=== PATIENT | male | born 1940 | race Caucasian/White ===

== ENCOUNTER 2018-11-06 10:03 | Inpatient (IN) | payer MEDICARE, OTHER ==
[~2018-11-06] VITALS: Ht 177.8 cm; Wt 80.0 kg
[~2018-11-06 10:03] MED LIST: OMEP20CA11 PO
[2018-11-06 11:07] LABS: BASOPHILS # (AUTO) 0.1 X10'3 (0-0.2); BASOPHILS % (AUTO) 0.9 % (0-1); EOSINOPHILS % (AUTO) 0.3 % (0-6); HEMATOCRIT 46.7 % (42.0-52.0); HEMOGLOBIN 15.3 g/dl (14.0-17.9); LYMPHOCYTES # (AUTO) 4.4 X10'3 (1.1-4.8); LYMPHOCYTES % (AUTO) 47.7 % (21-51); MEAN CORPUSCULAR HGB CONC 32.7 g/dL (33.0-36.5); MEAN CORPUSCULAR VOLUME 85.5 FL (78-98); MEAN PLATELET VOLUME 10.3 FL (7.4-10.4); MONOCYTES # (AUTO) 0.3 X10'3 (0-0.9); MONOCYTES % (AUTO) 3.8 % (2-12); NEUTROPHILS # (AUTO) 4.4 X10'3 (1.8-7.7); NEUTROPHILS % (AUTO) 47.3 % (42-75); PLATELET COUNT 119 X10'3 (140-440); RED BLOOD COUNT 5.46 X10'6 (4.70-6.10); RED CELL DISTRIBUTION WIDTH 14.8 % (11.5-14.5); WHITE BLOOD COUNT 9.3 X10'3 (4.5-11.0)
[2018-11-06 11:19] LABS: ALANINE AMINOTRANSFERASE 25 U/L (12-78); ALBUMIN 4.3 G/DL (3.4-5.0); ALBUMIN/GLOBULIN RATIO 1.4 (1.1-1.5); ALKALINE PHOSPHATASE 64 IU/L (46-116); ANION GAP 8 (8-16); ASPARTATE AMINO TRANSFERASE 17 U/L (10-37); BILIRUBIN,TOTAL 0.5 MG/DL (0.1-1.0); BLOOD UREA NITROGEN 23 MG/DL (7-18); CALCIUM 9.4 MG/DL (8.5-10.1); CHLORIDE 106 MMOL/L (99-107); CREATININE 0.96 MG/DL (0.60-1.10); GLUCOSE 110 MG/DL (70-104); POTASSIUM 5.2 MMOL/L (3.5-5.1); SODIUM 141 MMOL/L (135-145); TOTAL CARBON DIOXIDE 27.3 MMOL/L (24-32); TOTAL PROTEIN 7.3 G/DL (6.4-8.2); eGFR 75 ML/MIN
[2018-11-06] MEDS ORDERED: NO HOME MEDS (11:26)
[2018-11-06] MEDS ORDERED: insulin regular, human 10 units/0.1 ml syringe IV ONE (11:35)
[2018-11-06] MEDS ORDERED: dextrose 50%-water 50ml dispensing syringe IV ONE (11:35)
[2018-11-06 11:41] LABS: PLATELET ESTIMATE DECREASED; TOTAL CELLS COUNTED 100
[2018-11-06] MEDS ORDERED: enoxaparin 100mg/ml syringe SUBCUT ONE (11:50)
[2018-11-06] MEDS ORDERED: mag hydrox/Alum hydrox/simeth 30ml oral suspension PO PRN (13:35)
[2018-11-06] MEDS ORDERED: magnesium hydroxide 30ml (MOM) UD suspension PO PRN (13:35)
[2018-11-06] MEDS ORDERED: ondansetron/PF 4mg/2ml inj IV PRN (13:35)
[2018-11-06] MEDS ORDERED: acetaminophen 325mg tablet PO PRN (13:35)
[2018-11-06] MEDS ORDERED: morphine 2 MG/ML inj. syringe IV PRN ×2 (13:35)
[2018-11-06] MEDS ORDERED: sodium polystyrene sulfonate 15gm/60ml oral suspension PO ONE (14:05)
--- NOTE | 2018-11-06 14:50 | NUR ---
Received report from Hien PEREZ RN.
[2018-11-06 15:20] VITALS: BP 139/81
--- NOTE | 2018-11-06 15:37 | NUR ---
Paged hospitalist, "Ambreen [phone]- new admit Rm 311 Hood Price Do you want ETOH protocol or beer ordered by chance?"
[2018-11-06] MEDS: normal saline 1000ml 1,000 ML IV SCH (16:37)
[2018-11-06] MEDS ORDERED: nitroGLYCERIN 0.4mg SUBLingual tab SL PRN (17:40)
[2018-11-06] MEDS ORDERED: regadenoson 0.4mg/5ml syringe IV PRN (17:40)
[2018-11-06] MEDS ORDERED: folic acid 1mg tablet PO ONE (17:40)
[2018-11-06] MEDS ORDERED: metoprolol tartrate 1mg/ml inj IV PRN (17:40)
[2018-11-06] MEDS ORDERED: aminophylline 250mg/10ml inj. IV PRN (17:40)
[2018-11-06] MEDS ORDERED: LORazepam 2 mg/ml vial IV PRN (17:40)
--- NOTE | 2018-11-06 18:13 | NUR ---
Problems reprioritized. Patient report given, questions answered & plan of care reviewed with Dahiana MONTERO.
--- NOTE | 2018-11-06 18:28 | NUR ---
Patient in room MED 311. I have received report from Ambreen MONTERO and had the opportunity to ask questions and assume patient care.
[2018-11-06 19:00] VITALS: BP 139/82
[2018-11-06] MEDS: carVEDilol 3.125mg tablet PO SCH (19:17)
[2018-11-06] MEDS: thiamine 100mg tablet PO SCH (19:18)
[2018-11-06] MEDS: enoxaparin 80mg/0.8ml syringe SUBCUT SCH (19:18)
[2018-11-06 23:00] VITALS: BP 123/78
[2018-11-07] VITALS (14 sets, daily range): BP systolic 118–167; BP diastolic 60–95
[2018-11-07] MEDS: normal saline 1000ml 1,000 ML IV SCH ×2 (03:30→09:31)
[2018-11-07 06:04] LABS: EOSINOPHILS # (AUTO) 0.1 X10'3 (0-0.9); WHITE BLOOD COUNT 7.6 X10'3 (4.5-11.0)
[2018-11-07 06:06] LABS: BASOPHILS # (AUTO) 0.1 X10'3 (0-0.2); BASOPHILS % (AUTO) 0.7 % (0-1); EOSINOPHILS % (AUTO) 0.9 % (0-6); HEMATOCRIT 40.7 % (42.0-52.0); HEMOGLOBIN 13.3 g/dl (14.0-17.9); LYMPHOCYTES # (AUTO) 3.4 X10'3 (1.1-4.8); LYMPHOCYTES % (AUTO) 44.1 % (21-51); MEAN CORPUSCULAR HEMOGLOBIN 27.8 PG (27.0-31.0); MEAN CORPUSCULAR HGB CONC 32.7 g/dL (33.0-36.5); MEAN CORPUSCULAR VOLUME 84.9 FL (78-98); MEAN PLATELET VOLUME 10.2 FL (7.4-10.4); MONOCYTES # (AUTO) 0.3 X10'3 (0-0.9); MONOCYTES % (AUTO) 4.5 % (2-12); NEUTROPHILS # (AUTO) 3.8 X10'3 (1.8-7.7); NEUTROPHILS % (AUTO) 49.8 % (42-75); PLATELET COUNT 98 X10'3 (140-440); RED BLOOD COUNT 4.79 X10'6 (4.70-6.10)
--- NOTE | 2018-11-07 06:08 | NUR ---
Problems reprioritized. Patient report given, questions answered & plan of care reviewed with Art RN.
[2018-11-07 06:26] LABS: ANION GAP 7 (8-16); BLOOD UREA NITROGEN 22 MG/DL (7-18); BUN/CREATININE RATIO 23.2 (5.4-32.0); CHLORIDE 110 MMOL/L (99-107); CREATININE 0.95 MG/DL (0.60-1.10); GLUCOSE 93 MG/DL (70-104); POTASSIUM 4.2 MMOL/L (3.5-5.1); SODIUM 144 MMOL/L (135-145); TOTAL CARBON DIOXIDE 27.1 MMOL/L (24-32)
[2018-11-07 06:27] LABS: ALBUMIN 3.5 G/DL (3.4-5.0); eGFR 76 ML/MIN
[2018-11-07] MEDS: thiamine 100mg tablet PO SCH ×2 (07:41→21:19)
[2018-11-07] MEDS: folic acid 1mg tablet PO SCH (07:41)
[2018-11-07] MEDS: aspirin 81mg tablet.DR PO SCH (07:41)
[2018-11-07] MEDS: atorvastatin 20mg tablet PO SCH (07:41)
[2018-11-07] MEDS: enoxaparin 80mg/0.8ml syringe SUBCUT SCH ×2 (08:00→20:00)
[2018-11-07] MEDS: carVEDilol 3.125mg tablet PO SCH ×2 (08:00→21:19)
[2018-11-07 08:06] LABS: TOTAL CELLS COUNTED 100
[2018-11-07 08:07] LABS: PLATELET ESTIMATE DECREASED
--- NOTE | 2018-11-07 09:17 | NUR ---
Pt to stress test
--- NOTE | 2018-11-07 13:56 | NUR ---
Pt was to have a cath tomorrow. [facility] and cannot have a cath without prior approval from the [facility].
--- NOTE | 2018-11-07 18:00 | NUR ---
Patient in room MED 311. I have received report from Art, RN and had the opportunity to ask questions and assume patient care.
[2018-11-08] VITALS (12 sets, daily range): BP systolic 118–146; BP diastolic 48–84
[2018-11-08] MEDS: normal saline 1000ml 1,000 ML IV SCH ×3 (01:02→15:55)
[2018-11-08 04:59] LABS: BASOPHILS % (AUTO) 0.7 % (0-1); EOSINOPHILS # (AUTO) 0.1 X10'3 (0-0.9); EOSINOPHILS % (AUTO) 1.5 % (0-6); HEMOGLOBIN 12.7 g/dl (14.0-17.9); LYMPHOCYTES # (AUTO) 3.1 X10'3 (1.1-4.8); MEAN CORPUSCULAR VOLUME 85.6 FL (78-98)
[2018-11-08 05:02] LABS: HEMATOCRIT 37.7 % (42.0-52.0); LYMPHOCYTES % (AUTO) 48.2 % (21-51); MEAN CORPUSCULAR HEMOGLOBIN 28.7 PG (27.0-31.0); MEAN CORPUSCULAR HGB CONC 33.6 g/dL (33.0-36.5); MEAN PLATELET VOLUME 10.4 FL (7.4-10.4); MONOCYTES # (AUTO) 0.5 X10'3 (0-0.9); MONOCYTES % (AUTO) 7.5 % (2-12); NEUTROPHILS # (AUTO) 2.7 X10'3 (1.8-7.7); NEUTROPHILS % (AUTO) 42.1 % (42-75); PLATELET COUNT 94 X10'3 (140-440); RED BLOOD COUNT 4.41 X10'6 (4.70-6.10); RED CELL DISTRIBUTION WIDTH 14.5 % (11.5-14.5); WHITE BLOOD COUNT 6.4 X10'3 (4.5-11.0)
[2018-11-08 05:10] LABS: CHLORIDE 111 MMOL/L (99-107); GLUCOSE 94 MG/DL (70-104); POTASSIUM 4.1 MMOL/L (3.5-5.1); SODIUM 142 MMOL/L (135-145)
[2018-11-08 05:11] LABS: ALBUMIN 3.2 G/DL (3.4-5.0); ANION GAP 5 (8-16); BLOOD UREA NITROGEN 18 MG/DL (7-18); BUN/CREATININE RATIO 17.6 (5.4-32.0); CALCIUM 7.5 MG/DL (8.5-10.1); CREATININE 1.02 MG/DL (0.60-1.10); eGFR 70 ML/MIN
[2018-11-08 07:21] LABS: TOTAL CELLS COUNTED 100
[2018-11-08 07:23] LABS: ANISOCYTOSIS 1+; PLATELET ESTIMATE DECREASED
[2018-11-08 07:27] LABS: SMUDGE CELLS 2+
[2018-11-08] MEDS: folic acid 1mg tablet PO SCH (07:51)
[2018-11-08] MEDS: aspirin 81mg tablet.DR PO SCH (07:51)
[2018-11-08] MEDS: thiamine 100mg tablet PO SCH ×2 (07:51→20:37)
[2018-11-08] MEDS: atorvastatin 20mg tablet PO SCH (07:51)
[2018-11-08] MEDS: carVEDilol 3.125mg tablet PO SCH ×2 (07:51→20:37)
[2018-11-08] MEDS: enoxaparin 80mg/0.8ml syringe SUBCUT SCH ×2 (08:00→20:00)
--- NOTE | 2018-11-08 08:50 | NUR ---
Rolanda, telephonic case manager, called. informed that she received confirmation from [facility] liason that patient does not need pre-authorization for inpatient heart cath.
--- NOTE | 2018-11-08 09:00 | NUR ---
informed Dr. Mello about conversation with [employer], Rolanda. Informed Dr. Mello that I will call Dr. Llamas.
--- NOTE | 2018-11-08 09:05 | NUR ---
I called Dr. Llamas Office - informed entry level receptionist that [facility] only applies to outpatient heart catheterization. Sample Sewer informed that she would give the message to Dr. Llamas
--- NOTE | 2018-11-08 09:15 | NUR ---
Dr. Llamas called: New orders received - prep patient for heart catheterization this afternoon. Dr. Llamas said patient would be done after his other 2 cases. NS@100, NPO now except for meds. Dr. Llamas will call the lab intern. I called dyehouse worker. Informed her that patient we be taken to lab intern post Dr. Llamas's other 2 cases.
--- NOTE | 2018-11-08 10:01 | NUR ---
PAGER ID: [phone] MESSAGE: [phone]: MORALES darling pt to heart cath this afternoon, around 1630ish. nurse art [phone]
[2018-11-08] MEDS ORDERED: fentaNYL/PF 50MCG/1 ML 2ML syringe ONE (12:37)
[2018-11-08] MEDS ORDERED: iohexol 350MG/ML 100ml bottle IV ONE (12:37)
[2018-11-08] MEDS ORDERED: LIDOcaine 1% (10mg/ml)w/preservative injection 20ml MDV ONE (12:37)
[2018-11-08] MEDS ORDERED: iohexol 350 MG/ML 50ML vial IV ONE (12:37)
[2018-11-08] MEDS ORDERED: midazolam 2 mg/2 ml injection ONE (12:37)
--- NOTE | 2018-11-08 12:52 | NUR ---
patient off to labor delivery rn
[2018-11-08] MEDS ORDERED: heparin 1,000unit/ml 10ml vial 10 ML ONE (13:11)
[2018-11-08] MEDS ORDERED: tirofiban 5mg in NS 100mL 100 ML IV ONE (13:13)
[2018-11-08] MEDS ORDERED: iohexol 350 MG/1 ML 200ml bottle ONE (13:13)
[2018-11-08] MEDS ORDERED: heparin 25,000 UNIT/250ml bag 250 ML IV ONE (13:13)
--- NOTE | 2018-11-08 13:26 | NUR ---
PAGER ID: [phone] MESSAGE: Dr. Mello, can you call Dr. Llamas in the molder labels at [phone] regarding pt Price? Thanks. Art
[2018-11-08] MEDS ORDERED: HYDROcodone/acetaminophen 5mg/325mg tablet PO PRN (14:05)
[2018-11-08] MEDS ORDERED: normal saline 1000ml 1,000 ML IV SCH (14:05)
[2018-11-08] MEDS ORDERED: HYDROcodone/acetaminophen 10/325mg tab PO PRN (14:05)
[2018-11-08] MEDS ORDERED: OXAZEpam 15mg capsule PO PRN (14:05)
[2018-11-08] MEDS ORDERED: proCHLORperazine 10 MG/2 ml inj IV PRN (14:05)
--- NOTE | 2018-11-08 14:16 | NUR ---
pt resting in his room post cath. He is supine in the bed with q15 minute VS.
--- NOTE | 2018-11-08 21:35 | NUR ---
Patient in room MED 311. I have received report from Art RN and had the opportunity to ask questions and assume patient care.
[2018-11-09 02:00] VITALS: BP 104/58
[2018-11-09] MEDS: normal saline 1000ml 1,000 ML IV SCH (05:09)
[2018-11-09 06:00] VITALS: BP 126/60
[2018-11-09 06:19] LABS: BASOPHILS % (AUTO) 0.6 % (0-1); EOSINOPHILS # (AUTO) 0.1 X10'3 (0-0.9); EOSINOPHILS % (AUTO) 1.4 % (0-6); HEMOGLOBIN 12.7 g/dl (14.0-17.9); LYMPHOCYTES # (AUTO) 2.9 X10'3 (1.1-4.8); MEAN CORPUSCULAR HEMOGLOBIN 28.2 PG (27.0-31.0); MEAN CORPUSCULAR HGB CONC 33.3 g/dL (33.0-36.5); MEAN CORPUSCULAR VOLUME 84.6 FL (78-98); MEAN PLATELET VOLUME 10.4 FL (7.4-10.4); MONOCYTES # (AUTO) 0.4 X10'3 (0-0.9); MONOCYTES % (AUTO) 5.8 % (2-12); NEUTROPHILS # (AUTO) 3.6 X10'3 (1.8-7.7); NEUTROPHILS % (AUTO) 51.2 % (42-75); PLATELET COUNT 99 X10'3 (140-440); RED BLOOD COUNT 4.49 X10'6 (4.70-6.10); RED CELL DISTRIBUTION WIDTH 14.5 % (11.5-14.5)
[2018-11-09 06:28] LABS: ALBUMIN 3.2 G/DL (3.4-5.0); ANION GAP 7 (8-16); BLOOD UREA NITROGEN 14 MG/DL (7-18); BUN/CREATININE RATIO 16.5 (5.4-32.0); CALCIUM 7.7 MG/DL (8.5-10.1); CHLORIDE 110 MMOL/L (99-107); CREATININE 0.85 MG/DL (0.60-1.10); GLUCOSE 94 MG/DL (70-104); SODIUM 142 MMOL/L (135-145); TOTAL CARBON DIOXIDE 25.2 MMOL/L (24-32); eGFR 87 ML/MIN
--- NOTE | 2018-11-09 06:45 | NUR ---
Reviewed and agreed with Jacquie Leblanc RN's charting.
--- NOTE | 2018-11-09 06:49 | NUR ---
Problems reprioritized. Patient report given, questions answered & plan of care reviewed with Pat RN.
--- NOTE | 2018-11-09 06:50 | NUR ---
Problems reprioritized. Patient report given, questions answered & plan of care reviewed with Pat RN.
[2018-11-09] MEDS: enoxaparin 80mg/0.8ml syringe SUBCUT SCH (08:00)
[2018-11-09] MEDS: aspirin 81mg tablet.DR PO SCH ×2 (08:00→09:52)
[2018-11-09] MEDS: atorvastatin 20mg tablet PO SCH (08:00)
[2018-11-09] MEDS: folic acid 1mg tablet PO SCH (08:00)
[2018-11-09] MEDS: thiamine 100mg tablet PO SCH (08:00)
[2018-11-09] MEDS: carVEDilol 3.125mg tablet PO SCH (08:33)
[2018-11-09] MEDS ORDERED: COR3.125T PO (08:59)
[2018-11-09] MEDS ORDERED: ATOR20TA66 PO (08:59)
[2018-11-09] MEDS ORDERED: ASPI-1071 PO (08:59)
--- NOTE | 2018-11-09 09:21 | NUR ---
PATIENT IS ESTABLISHED WITH [facility]. PATIENT WILL FOLLOW UP WITH THE [facility] AND MAKE APPOINTMENTS NECESSARY. Addendum: 11/09/18 at 0922 by Amanda Bone RN Amended: Links added.
--- NOTE | 2018-11-09 10:51 | NUR ---
DISCHARGE INSTRUCTIONS GIVEN TO PATIENT AND HIS DAUGHTER; PATIENT STATES AND SIGNS " UNDERSTANDING OF INSTRUCTIONS." SL DC'D WITH CATH INTACT 2X2 PRESSURE DRESSING APPLIED. RT. GROIN SITE CLEAR, NO HEMATOMA VISUAL AND PER PALPATION. DISCHARGED HOME WITH ALL BELONGINGS , INSTRUCTIONS , AND PRESCRIPTIONS. PATIENT'S DAUGHT IS AT HIS SIDE. Addendum: 11/09/18 at 1055 by Jerica Mcgraw RN Amended: Links added.
== END 2018-11-09 10:45 | disposition home or self-care (01) | DRG 282 ==
LOC: ER 10:04 → MED 3N 15:05 → CMPBEDREQ 19:27
PROVIDERS: ADMIT Family Medicine; ATTEND Internal Medicine
PROC: 4A02XM4 Measurement of Cardiac Total Activity, External Approach (ICD-10-PCS; principal; 2018-11-07)
PROC: 3E033HZ Introduction of Radioactive Substance into Peripheral Vein, Percutaneous Approach (ICD-10-PCS; 2018-11-07)
PROC: 4A023N7 Measurement of Cardiac Sampling and Pressure, Left Heart, Percutaneous Approach (ICD-10-PCS; 2018-11-08)
PROC: B2111ZZ Fluoroscopy of Multiple Coronary Arteries using Low Osmolar Contrast (ICD-10-PCS; 2018-11-08)
PROC: B2151ZZ Fluoroscopy of Left Heart using Low Osmolar Contrast (ICD-10-PCS; 2018-11-08)
PROC: B3101ZZ Fluoroscopy of Thoracic Aorta using Low Osmolar Contrast (ICD-10-PCS; 2018-11-08)
PROC: B3121ZZ Fluoroscopy of Left Subclavian Artery using Low Osmolar Contrast (ICD-10-PCS; 2018-11-08)
DX: I21.4 Non-ST elevation (NSTEMI) myocardial infarction (principal); E87.5 Hyperkalemia; D69.6 Thrombocytopenia, unspecified; E78.00 Pure hypercholesterolemia, unspecified; K57.90 Diverticulosis of intestine, part unspecified, without perforation or abscess without bleeding; M19.90 Unspecified osteoarthritis, unspecified site; I10 Essential (primary) hypertension; I25.110 Atherosclerotic heart disease of native coronary artery with unstable angina pectoris; Z79.82 Long term (current) use of aspirin; Z79.899 Other long term (current) drug therapy; Z87.01 Personal history of pneumonia (recurrent); Z88.8 Allergy status to other drugs, medicaments and biological substances
CPT/HCPCS: 36415; 71045; 78452; 80048; 80053; 83735; 83880; 84484; 85025; 86022; 87081; 93005; 93017; 93458; 96372; 96374; 96375; 99152; 99153; 99285; A4620; A6258; A9500; C1760; C1769; G0378; J1644; J1650; J1815; J2001; J2250; J2785; J3010; J3246; J7030; Q9967

== ENCOUNTER 2018-11-13 21:57 | Emergency (ER) | payer OTHER ==
[~2018-11-13] VITALS: Ht 182.9 cm; Wt 82.7 kg
[~2018-11-13 21:57] MED LIST changes: +ASPI-1071 PO; +ATOR20TA66 PO; +COR3.125T PO; -OMEP20CA11 PO
[2018-11-13 22:31] LABS: BASOPHILS # (AUTO) 0.1 X10'3 (0-0.2); BASOPHILS % (AUTO) 1.1 % (0-1); EOSINOPHILS # (AUTO) 0.1 X10'3 (0-0.9); EOSINOPHILS % (AUTO) 1.1 % (0-6); HEMATOCRIT 43.5 % (42.0-52.0); HEMOGLOBIN 14.3 g/dl (14.0-17.9); LYMPHOCYTES # (AUTO) 4.2 X10'3 (1.1-4.8); LYMPHOCYTES % (AUTO) 44.2 % (21-51); MEAN CORPUSCULAR HGB CONC 32.8 g/dL (33.0-36.5); MEAN CORPUSCULAR VOLUME 85.3 FL (78-98); MEAN PLATELET VOLUME 10.7 FL (7.4-10.4); MONOCYTES # (AUTO) 0.6 X10'3 (0-0.9); MONOCYTES % (AUTO) 6.4 % (2-12); NEUTROPHILS # (AUTO) 4.5 X10'3 (1.8-7.7); NEUTROPHILS % (AUTO) 47.2 % (42-75); PLATELET COUNT 138 X10'3 (140-440); RED CELL DISTRIBUTION WIDTH 14.7 % (11.5-14.5); WHITE BLOOD COUNT 9.5 X10'3 (4.5-11.0)
[2018-11-13 22:41] LABS: ALANINE AMINOTRANSFERASE 29 U/L (12-78); ALBUMIN 4.1 G/DL (3.4-5.0); ALBUMIN/GLOBULIN RATIO 1.4 (1.1-1.5); ALKALINE PHOSPHATASE 77 IU/L (46-116); ANION GAP 7 (8-16); ASPARTATE AMINO TRANSFERASE 18 U/L (10-37); BILIRUBIN,TOTAL 0.4 MG/DL (0.1-1.0); BLOOD UREA NITROGEN 25 MG/DL (7-18); BUN/CREATININE RATIO 23.1 (5.4-32.0); CALCIUM 9.3 MG/DL (8.5-10.1); CHLORIDE 106 MMOL/L (99-107); CREATININE 1.08 MG/DL (0.60-1.10); GLUCOSE 117 MG/DL (70-104); POTASSIUM 4.2 MMOL/L (3.5-5.1); SODIUM 142 MMOL/L (135-145); TOTAL CARBON DIOXIDE 28.7 MMOL/L (24-32); TOTAL PROTEIN 7.1 G/DL (6.4-8.2); eGFR 66 ML/MIN
[2018-11-13 22:44] LABS: PARTIAL THROMBOPLASTIN TIME 26 SECONDS (22-32)
--- NOTE | 2018-11-14 00:40 | NUR ---
transfer center called back for further information re: need for hematology. Discussed PLTs with them.
--- NOTE | 2018-11-14 00:42 | NUR ---
the note prior is from myself/not Javed.
[2018-11-14] MEDS ORDERED: heparin 25,000 UNIT/250ml bag 250 ML IV SCH (02:40)
[2018-11-14] MEDS ORDERED: heparin 10,000 units/1 ML INJ IV ONE ×2 (02:40→02:45)
[2018-11-14] MEDS ORDERED: heparin 10,000 units/1 ML INJ IV PRN (02:40)
--- NOTE | 2018-11-14 03:21 | NUR ---
LARRY TO ARMEN MONTERO AT [facility]
--- NOTE | 2018-11-14 05:44 | NUR ---
pt is comfortable and has no c/o anything, he is resting.
--- NOTE | 2018-11-14 07:22 | NUR ---
ASHLEY ZHOU. MONITOR INTACT DISPLAYING SINUS RHYTHM. AWAITING TRANSPORTATION TO TRANSFER PATIENT TO [facility].
--- NOTE | 2018-11-14 07:22 | NUR ---
[facility] CALLED FOR TRANSPORT ETA, THEY ARE NOT AT LEVELS FOR TRANSPORT. WILL CALL BACK WITH AN ETA.
--- NOTE | 2018-11-14 09:30 | NUR ---
ETA FOR [facility] TRANSPORT 5-10 MINUTES
--- NOTE | 2018-11-14 09:50 | NUR ---
TRANSPORT TEAM HERE TO TAKE PATIENT TO [facility]. REPORT TO EMS. PATIENT DEPARTED PER WIN[facility], ACCOMPANIED BY EMS TEAM AND RN, IN STABLE CONDITION WITH HEPARIN DRIP CONTINUING AT 1000 UNITS/HR ON PUMP.
[2018-11-14 09:51] VITALS: BP 124/73
== END 2018-11-14 09:54 | disposition short-term general hospital (02) ==
LOC: ER 21:57
DX: I20.0 Unstable angina (principal); Z95.1 Presence of aortocoronary bypass graft; Z79.82 Long term (current) use of aspirin; Z79.899 Other long term (current) drug therapy
CPT/HCPCS: 36415; 71045; 80053; 84484; 85025; 85610; 85730; 93005; 96365; 96366; 99285; J1644; 96374; 99284

== ENCOUNTER 2019-05-11 12:33 | Emergency (ER) | payer MEDICARE, OTHER ==
[~2019-05-11] VITALS: Ht 182.9 cm; Wt 72.7 kg
[2019-05-11] MEDS ORDERED: normal saline 1000ML IV soln IVB ONE (13:30)
[2019-05-11] MEDS ORDERED: ondansetron/PF 4mg/2ml inj IV ONE (13:30)
[2019-05-11 14:05] LABS: CLARITY,URINE SLIGHTLY CLOUDY (Clear); COLOR,URINE YELLOW (Yellow); GLUCOSE, URINE NEGATIVE (Neg); KETONES,URINE NEGATIVE (Neg); LEUKOCYTE ESTERASE ,URINE NEGATIVE (Neg); NITRITES, URINE NEGATIVE (Neg); OCCULT BLOOD,URINE NEGATIVE (Neg); PROTEIN,URINE TRACE mg/dl (Neg); UROBILINOGEN,URINE 0.2 E.U/dL (0.2-1.0)
[2019-05-11 14:10] LABS: UA COLLECTION TYPE NON-SPECIFIED
[2019-05-11 14:11] LABS: BASOPHILS # (AUTO) 0.1 X10'3 (0-0.2); EOSINOPHILS # (AUTO) 0.5 X10'3 (0-0.9); MEAN CORPUSCULAR HEMOGLOBIN 26.3 PG (27.0-31.0); MEAN CORPUSCULAR HGB CONC 32.4 g/dL (33.0-36.5); NEUTROPHILS # (AUTO) 6.5 X10'3 (1.8-7.7); RED BLOOD COUNT 4.94 X10'6 (4.70-6.10)
[2019-05-11 14:12] LABS: BACTERIA,URINE FEW /HPF (Neg); MUCUS STRANDS MANY /LPF (Neg); RBC,URINE NONE SEEN /HPF (0-2); SQUAMOUS EPITHELIAL CELL,UR FEW /LPF (FEW); WBC,URINE 0-4 /HPF (0-4)
[2019-05-11 14:13] LABS: BASOPHILS % (AUTO) 0.9 % (0-1); EOSINOPHILS % (AUTO) 3.3 % (0-6); HEMATOCRIT 40.1 % (42.0-52.0); LYMPHOCYTES # (AUTO) 6.2 X10'3 (1.1-4.8); LYMPHOCYTES % (AUTO) 44.2 % (21-51); MEAN CORPUSCULAR VOLUME 81.3 FL (78-98); MEAN PLATELET VOLUME 10.3 FL (7.4-10.4); MONOCYTES # (AUTO) 0.7 X10'3 (0-0.9); MONOCYTES % (AUTO) 4.9 % (2-12); NEUTROPHILS % (AUTO) 46.7 % (42-75); PLATELET COUNT 260 X10'3 (140-440); RED CELL DISTRIBUTION WIDTH 15.7 % (11.5-14.5)
[2019-05-11 14:25] LABS: ALANINE AMINOTRANSFERASE 65 U/L (12-78); ALBUMIN/GLOBULIN RATIO 0.7 (1.1-1.5); ALKALINE PHOSPHATASE 174 IU/L (46-116); ANION GAP 8 (8-16); ASPARTATE AMINO TRANSFERASE 30 U/L (10-37); BILIRUBIN,TOTAL 0.5 MG/DL (0.1-1.0); BLOOD UREA NITROGEN 28 MG/DL (7-18); BUN/CREATININE RATIO 26.2 (5.4-32.0); CALCIUM 9.6 MG/DL (8.5-10.1); CHLORIDE 104 MMOL/L (99-107); CREATININE 1.07 MG/DL (0.60-1.10); GLUCOSE 106 MG/DL (70-104); POTASSIUM 4.6 MMOL/L (3.5-5.1); SODIUM 140 MMOL/L (135-145); TOTAL PROTEIN 7.2 G/DL (6.4-8.2); eGFR 66 ML/MIN
[2019-05-11] MEDS ORDERED: MEGE40TA5 PO (14:37)
[2019-05-11 14:58] VITALS: BP 118/66
== END 2019-05-11 15:00 | disposition home or self-care (01) ==
LOC: ER 12:33
DX: E86.0 Dehydration (principal); R63.0 Anorexia; I25.10 Atherosclerotic heart disease of native coronary artery without angina pectoris; Z95.5 Presence of coronary angioplasty implant and graft; Z87.01 Personal history of pneumonia (recurrent); Z79.82 Long term (current) use of aspirin; Z79.899 Other long term (current) drug therapy
CPT/HCPCS: 36415; 80053; 81001; 85025; 96361; 96374; 99283; J2405; J7030

== ENCOUNTER 2020-11-14 16:36 | Emergency (ER) | payer MEDICARE, OTHER ==
[~2020-11-14] VITALS: Ht 182.9 cm; Wt 74.9 kg
[~2020-11-14 16:36] MED LIST changes: +MEGE40TA5 PO
[2020-11-14 16:44] VITALS: BP 142/88
[2020-11-14 17:17] LABS: CLARITY,URINE CLEAR (Clear); COLOR,URINE YELLOW (Yellow); GLUCOSE, URINE NEGATIVE (Neg); KETONES,URINE NEGATIVE (Neg); LEUKOCYTE ESTERASE ,URINE NEGATIVE (Neg); NITRITES, URINE NEGATIVE (Neg); OCCULT BLOOD,URINE TRACE-INTACT (Neg); PROTEIN,URINE NEGATIVE (Neg)
[2020-11-14 17:20] LABS: BASOPHILS # (AUTO) 0.1 X10'3 (0-0.2); BASOPHILS % (AUTO) 0.5 % (0-1); EOSINOPHILS # (AUTO) 0.1 X10'3 (0-0.9); MONOCYTES % (AUTO) 3.9 % (2-12)
[2020-11-14 17:21] LABS: BACTERIA,URINE NONE SEEN /HPF (Neg); MUCUS STRANDS FEW /LPF (Neg); RBC,URINE 0-2 /HPF (0-2); SQUAMOUS EPITHELIAL CELL,UR FEW /LPF (FEW); UA COLLECTION TYPE CLN CATCH MIDSTREAM; WBC,URINE 0-4 /HPF (0-4)
[2020-11-14 17:22] LABS: EOSINOPHILS % (AUTO) 0.5 % (0-6); HEMATOCRIT 44.7 % (42.0-52.0); HEMOGLOBIN 14.1 g/dl (14.0-17.9); LYMPHOCYTES # (AUTO) 12.2 X10'3 (1.1-4.8); LYMPHOCYTES % (AUTO) 73.2 % (21-51); MEAN CORPUSCULAR HEMOGLOBIN 27.6 PG (27.0-31.0); MEAN CORPUSCULAR HGB CONC 31.6 g/dL (33.0-36.5); MEAN CORPUSCULAR VOLUME 87.4 FL (78-98); MEAN PLATELET VOLUME 12.3 FL (7.4-10.4); MONOCYTES # (AUTO) 0.7 X10'3 (0-0.9); NEUTROPHILS # (AUTO) 3.7 X10'3 (1.8-7.7); NEUTROPHILS % (AUTO) 21.9 % (42-75); PLATELET COUNT 129 X10'3 (140-440); RED BLOOD COUNT 5.12 X10'6 (4.70-6.10); RED CELL DISTRIBUTION WIDTH 14.8 % (11.5-14.5); WHITE BLOOD COUNT 16.7 X10'3 (4.5-11.0)
[2020-11-14 17:38] LABS: ALANINE AMINOTRANSFERASE 19 U/L (12-78); ALBUMIN 4.5 G/DL (3.4-5.0); ALBUMIN/GLOBULIN RATIO 1.6 (1.1-1.5); ALKALINE PHOSPHATASE 110 IU/L (46-116); ANION GAP 7 (8-16); ASPARTATE AMINO TRANSFERASE 19 U/L (10-37); BILIRUBIN,TOTAL 0.9 MG/DL (0.1-1.0); BLOOD UREA NITROGEN 25 MG/DL (7-18); BUN/CREATININE RATIO 21.2 (5.4-32.0); CALCIUM 9.1 MG/DL (8.5-10.1); CHLORIDE 107 MMOL/L (99-107); CREATININE 1.18 MG/DL (0.60-1.10); GLUCOSE 96 MG/DL (70-104); LIPASE 65 U/L (73-393); POTASSIUM 4.2 MMOL/L (3.5-5.1); SODIUM 145 MMOL/L (135-145); TOTAL PROTEIN 7.4 G/DL (6.4-8.2); eGFR 59 ML/MIN
[2020-11-25] MEDS ORDERED: ASPI-611 PO (10:54)
[2020-11-25] MEDS ORDERED: ATOR20TA PO (10:54)
[2020-11-25] MEDS ORDERED: CARV-50 PO (10:54)
== END 2020-11-14 20:44 | disposition home or self-care (01) ==
LOC: ER 16:37
DX: R59.9 Enlarged lymph nodes, unspecified (principal); K57.90 Diverticulosis of intestine, part unspecified, without perforation or abscess without bleeding; N26.1 Atrophy of kidney (terminal); I25.10 Atherosclerotic heart disease of native coronary artery without angina pectoris; Z79.82 Long term (current) use of aspirin; Z79.899 Other long term (current) drug therapy; Z87.01 Personal history of pneumonia (recurrent); Z87.81 Personal history of (healed) traumatic fracture; Z72.89 Other problems related to lifestyle
CPT/HCPCS: 74176; 80053; 81001; 83690; 85025; 99284

== ENCOUNTER 2020-12-02 07:13 | Day surgery (SDC) | payer OTHER ==
[2020-11-25 11:03] LABS: BASOPHILS # (AUTO) 0.1 X10'3 (0-0.2); EOSINOPHILS # (AUTO) 0.1 X10'3 (0-0.9); MEAN CORPUSCULAR HEMOGLOBIN 27.4 PG (27.0-31.0); MEAN CORPUSCULAR HGB CONC 31.5 g/dL (33.0-36.5)
[2020-11-25 11:05] LABS: BASOPHILS % (AUTO) 0.4 % (0-1); EOSINOPHILS % (AUTO) 0.6 % (0-6); LYMPHOCYTES # (AUTO) 11.4 X10'3 (1.1-4.8); LYMPHOCYTES % (AUTO) 69.3 % (21-51); MEAN CORPUSCULAR VOLUME 86.7 FL (78-98); MEAN PLATELET VOLUME 11.8 FL (7.4-10.4); MONOCYTES # (AUTO) 0.6 X10'3 (0-0.9); MONOCYTES % (AUTO) 3.6 % (2-12); NEUTROPHILS # (AUTO) 4.3 X10'3 (1.8-7.7); NEUTROPHILS % (AUTO) 26.1 % (42-75); PRE OP HEMATOCRIT 45.2 % (42.0-52.0); PRE OP HEMOGLOBIN 14.3 g/dL (14.0-17.9); PRE OP PLATELET COUNT 121 X10'3 (140-440); RED BLOOD COUNT 5.22 X10'6 (4.70-6.10); RED CELL DISTRIBUTION WIDTH 14.9 % (11.5-14.5)
[2020-11-25 11:15] LABS: ALBUMIN 4.2 G/DL (3.4-5.0); ALBUMIN/GLOBULIN RATIO 1.6 (1.1-1.5); ALKALINE PHOSPHATASE 106 IU/L (46-116); BLOOD UREA NITROGEN 18 MG/DL (7-18); BUN/CREATININE RATIO 17.3 (5.4-32.0); CALCIUM 8.9 MG/DL (8.5-10.1); CHLORIDE 106 MMOL/L (99-107); CREATININE 1.04 MG/DL (0.60-1.10); PRE OP ALT 19 U/L (30-65); PRE OP ANION GAP 4 (8-16); PRE OP AST 18 U/L (10-37); PRE OP BILIRUB, TOTAL 0.8 MG/DL (0.0-1.0); PRE OP GLUCOSE 92 MG/DL (70-104); PRE OP POTASSIUM 4.9 MMOL/L (3.4-5.1); PRE OP SODIUM 142 MMOL/L (135-145); TOTAL PROTEIN 6.8 G/DL (6.4-8.2); eGFR 68 ML/MIN
[2020-11-25 11:41] LABS: CLARITY,URINE CLEAR (Clear); COLOR,URINE YELLOW (Yellow); UA COLLECTION TYPE VOIDED
[2020-11-25 11:42] LABS: GLUCOSE, URINE NEGATIVE (Neg); KETONES,URINE NEGATIVE (Neg); NITRITES, URINE NEGATIVE (Neg); OCCULT BLOOD,URINE NEGATIVE (Neg); PH,URINE 7.5 (4.8-8.0); PROTEIN,URINE NEGATIVE (Neg)
[2020-11-25 11:43] LABS: LEUKOCYTE ESTERASE ,URINE NEGATIVE (Neg); UROBILINOGEN,URINE 0.2 E.U/dL (0.2-1.0)
[2020-11-25 13:20] LABS: PLATELET ESTIMATE DECREASED; SMUDGE CELLS 1+; TOTAL CELLS COUNTED 100
[2020-12-02] VITALS (12 sets, daily range): BP systolic 1–164; BP diastolic 57–94
[~2020-12-02] VITALS: Ht 182.9 cm; Wt 77.6 kg
[~2020-12-02 07:13] MED LIST changes: -ASPI-1071 PO; +ASPI-611 PO; +ATOR20TA PO; -ATOR20TA66 PO; +BUPIVAcaine/PF 2.5mg/ml (0.25%) 10ml vial ONE; +CARV-50 PO; -COR3.125T PO; +DOCUMENT DATE & TIME OF BETA-BLOCKER PO ONE; -MEGE40TA5 PO; +cefazolin/dext.iso 2gm/100ml IV ONE; +famotidine 20mg tablet PO ONE; +ringers solution, lacted 1,000 ML IV SCH
[2020-12-02] MEDS ORDERED: ondansetron/PF 4mg/2ml inj IV PRN (08:35)
[2020-12-02] MEDS ORDERED: morphine 2 MG/ML inj. syringe IV PRN (08:35)
[2020-12-02] MEDS ORDERED: ringers solution, lacted 1,000 ML IV SCH (08:35)
[2020-12-02] MEDS ORDERED: proCHLORperazine 10 MG/2 ml inj IV PRN (08:35)
[2020-12-02] MEDS ORDERED: meperidine/PF 25mg/ml syringe IV PRN ×3 (08:35)
[2020-12-02] MEDS ORDERED: morphine 4 MG/ML inj SYRINge IV PRN (08:35)
[2020-12-02 09:35] LABS: BASOPHILS # (AUTO) 0.1 X10'3 (0-0.2); BASOPHILS % (AUTO) 0.4 % (0-1); EOSINOPHILS # (AUTO) 0.1 X10'3 (0-0.9); EOSINOPHILS % (AUTO) 0.5 % (0-6); HEMATOCRIT 40.8 % (42.0-52.0); HEMOGLOBIN 13.2 g/dl (14.0-17.9); LYMPHOCYTES # (AUTO) 8.6 X10'3 (1.1-4.8); LYMPHOCYTES % (AUTO) 64.1 % (21-51); MEAN CORPUSCULAR HEMOGLOBIN 27.9 PG (27.0-31.0); MEAN CORPUSCULAR HGB CONC 32.2 g/dL (33.0-36.5); MEAN CORPUSCULAR VOLUME 86.5 FL (78-98); MEAN PLATELET VOLUME 11.1 FL (7.4-10.4); MONOCYTES # (AUTO) 0.6 X10'3 (0-0.9); MONOCYTES % (AUTO) 4.4 % (2-12); NEUTROPHILS # (AUTO) 4.1 X10'3 (1.8-7.7); NEUTROPHILS % (AUTO) 30.6 % (42-75); PLATELET COUNT 101 X10'3 (140-440); RED BLOOD COUNT 4.72 X10'6 (4.70-6.10); RED CELL DISTRIBUTION WIDTH 14.4 % (11.5-14.5); WHITE BLOOD COUNT 13.3 X10'3 (4.5-11.0)
[2020-12-02 10:17] LABS: PLATELET ESTIMATE DECREASED; TOTAL CELLS COUNTED 100
[2020-12-02 10:20] LABS: SMUDGE CELLS 2+
[2020-12-02] MEDS ORDERED: BUPIVAcaine 0.5% inj/PF 30 ML ONE (11:06)
[2020-12-02] MEDS ORDERED: glycopyrrolate 0.2mg/ml inj ONE (12:06)
[2020-12-02] MEDS ORDERED: dexamethasone sod phosphate 10mg/ml inj ONE (12:06)
[2020-12-02] MEDS ORDERED: sevoflurane 250ml liquid IH ONE (12:06)
[2020-12-02] MEDS ORDERED: neostigmine methylsulfate 1 MG/ML 10ml vial ONE (12:06)
[2020-12-02] MEDS ORDERED: rocuronium 10mg/ml inj IV ONE ×2 (12:06→12:27)
[2020-12-02] MEDS ORDERED: fentaNYL/PF 50MCG/1 ML 2ML syringe ONE ×2 (12:17→13:44)
[2020-12-02] MEDS ORDERED: midazolam 1 mg/ML 2ml injection ONE (12:17)
[2020-12-02] MEDS ORDERED: propofol inj 20 ML IV ONE (12:26)
[2020-12-02] MEDS ORDERED: ondansetron/PF 4mg/2ml inj ONE (12:27)
[2020-12-02] MEDS ORDERED: LIDOcaine 1%/PF 5ML 10 MG/ML VIAL ONE (12:27)
[2020-12-02] MEDS ORDERED: acetaminophen 1,000mg/100ml IV 100 ML IV ONE (14:12)
--- NOTE | 2020-12-02 14:29 | NUR ---
Received from OR via WINNIE , accompanied by Anesthesiologist CHUCK and report given by Anesthesiolgist. PATIENT WITH 20G PIV IN LEFT UR RUNNING LR AT 100. DENIES PAIN AT THIS TIME. 10LPM O2 VIA MASK WITH 100% SATURATIONS. VSS. 4 ABDOMINAL LAP SITES PREDSENT THAT ARE ALL CDI CURRENTLY. LATERAL ISLAND DRESSING PRESENT COVERING DRESSINGS- CDI WELL. Addendum: 12/02/20 at 1437 by Vladimir Lowe RN, RN Amended: Links added.
--- NOTE | 2020-12-02 16:19 | NUR ---
Report called to receiving nurse. Transferred via WHEELCHAIR WITH Belongings SENT WITH PATIENT. PRESCRIPTION WITH PATIENT AND ALL DC INSTRUCTIONS COVERED AND ALL QUESTIONS ANSWERED. VSS. DRESSINGS CDI. VOIDED AND 0 RESIDUAL URINE IN BLADDER AFTER 4 BLADDER SCANS. DRESSED AND TAKEN OUT TO CARE OF DAUGHTER. GAVE SOME INSTRUCTIONS TO ASSIST IN HIS CARE. Addendum: 12/02/20 at 1715 by Vladimir Lowe RN, RN Amended: Links added.
== END 2020-12-02 16:19 | disposition home or self-care (01) ==
LOC: PAS 07:13
PROVIDERS: ATTEND Surgery
DX: R59.0 Localized enlarged lymph nodes (principal); K40.90 Unilateral inguinal hernia, without obstruction or gangrene, not specified as recurrent; C83.05 Small cell B-cell lymphoma, lymph nodes of inguinal region and lower limb; I10 Essential (primary) hypertension; E78.00 Pure hypercholesterolemia, unspecified; I25.10 Atherosclerotic heart disease of native coronary artery without angina pectoris; M19.90 Unspecified osteoarthritis, unspecified site; Z72.89 Other problems related to lifestyle; Z79.01 Long term (current) use of anticoagulants; Z20.822 Contact with and (suspected) exposure to COVID-19; Z79.899 Other long term (current) drug therapy; Z79.82 Long term (current) use of aspirin; Z95.5 Presence of coronary angioplasty implant and graft; Z98.890 Other specified postprocedural states; Z82.49 Family history of ischemic heart disease and other diseases of the circulatory system; Z83.6 Family history of other diseases of the respiratory system
CPT/HCPCS: 36415; 38570; 49650; 80053; 81003; 82948; 85025; 93005; C1758; C1781; J0131; J2250; J2405; J2704; J3010; J3490; J7120; U0003; U0005; Z7506; Z7508; Z7512; 85007; A4215; A4618; A6258; A6449; J1100; J2710

== ENCOUNTER 2022-09-11 18:18 | Emergency (ER) | payer OTHER ==
[~2022-09-11] VITALS: Ht 182.9 cm; Wt 73.1 kg
[~2022-09-11 18:18] MED LIST changes: -BUPIVAcaine/PF 2.5mg/ml (0.25%) 10ml vial ONE; -DOCUMENT DATE & TIME OF BETA-BLOCKER PO ONE; -cefazolin/dext.iso 2gm/100ml IV ONE; -famotidine 20mg tablet PO ONE; -ringers solution, lacted 1,000 ML IV SCH
[2022-09-11 18:37] VITALS: BP 135/57
== END 2022-09-12 01:55 | disposition left against medical advice (07) ==
LOC: ER 18:19
DX: M54.9 Dorsalgia, unspecified (principal); Z53.21 Procedure and treatment not carried out due to patient leaving prior to being seen by health care provider
CPT/HCPCS: 99281